=== PATIENT | male | born 1995 | race Caucasian/White ===

== ENCOUNTER 2018-01-01 14:23 | Emergency (ER) | payer OTHER ==
[~2018-01-01] VITALS: Ht 172.7 cm; Wt 63.5 kg
[~2018-01-01 14:23] MED LIST: BUPR100 PO; CODACEE120 PO; HYDACE5325 PO; IBUP600 PO; SULTRIDS PO; SULTRIEL PO; Triamcinolone A15 G3 TP; Zithromax250 MG PO
[2018-01-01] MEDS ORDERED: IBUP800 PO (15:41)
[2018-01-01] MEDS ORDERED: Cleocin HCl150 MG PO (15:41)
== END 2018-01-01 15:51 | disposition home or self-care (01) ==
LOC: ER 14:23
DX: K04.7 Periapical abscess without sinus (principal); Z88.0 Allergy status to penicillin; Z88.8 Allergy status to other drugs, medicaments and biological substances; Z79.1 Long term (current) use of non-steroidal anti-inflammatories (NSAID); Z87.891 Personal history of nicotine dependence
CPT/HCPCS: 99283